=== PATIENT | male | born 1990 | race Caucasian/White ===

== ENCOUNTER 2016-11-05 20:39 | Emergency (ER) | payer MEDICAID ==
[2016-11-05] MEDS ORDERED: CEPHALEXIN 500 MG CAPSULE ONE (23:12)
[2016-11-05] MEDS ORDERED: IBUPROFEN 800 MG TABLET ONE (23:12)
== END 2016-11-05 23:29 | disposition home or self-care (01) ==
LOC: ED 20:39
DX: L02.412 Cutaneous abscess of left axilla (principal); L02.411 Cutaneous abscess of right axilla; F17.210 Nicotine dependence, cigarettes, uncomplicated
CPT/HCPCS: 99283 ×2; A9270 ×2